=== PATIENT | female | born 1980 | race Caucasian/White ===

== ENCOUNTER 2019-06-30 15:10 | Outpatient (RCR) | payer MEDICARE, MEDICAID, SELFPAY ==
[2019-06-30 16:45] LABS: Beta HCG Quantitative 45.87 mIU/ML
== END 2019-09-28 23:59 | disposition home or self-care (01) ==
LOC: ANHLAB 15:10
PROVIDERS: PCP Family Medicine; Visit Provider Obstetrics & Gynecology
DX: O02.1 Missed abortion (principal); Z3A.00 Weeks of gestation of pregnancy not specified
CPT/HCPCS: 36415; 84702

== ENCOUNTER 2020-01-10 12:50 | Outpatient (CLI) | payer MEDICARE, MEDICAID, SELFPAY ==
--- NOTE | 2020-01-10 | ECHO_ITS ---
Patient Info Name: Karina Aguayo Age: 39 years : 1980 Gender: Female Ht: 65 in Wt: 250 lbs BSA: 2.34 m2 HR: 76 bpm BP: 128 / 98 mmHg Heart Rhythm: Sinus Rhythm Technical Quality: Good Exam Date: 01/10/2020 1:28 PM Exam Location: [facility] Patient Status: Outpatient Admit Date: 01/10/2020 Staff Ordering Physician: PHYSICIAN NOT ON STAFF, NONSTAFF Mapper: Joey Pina, CHARLEEN, RT Attending Provider: PHYSICIAN NOT ON STAFF, NONSTAFF Exam Type: CA echo doppler color flow Study Info Indications I27.2 - Other secondary pulmonary hypertension Complete two-dimensional, color flow and Doppler transthoracic echocardiogram is performed. Summary 1. Left ventricular systolic function is normal, estimated at 60-65%. 2. There is mildly increased left ventricular wall thickness. 3. The left ventricular diastolic function is normal. 4. Global longitudinal strain is normal at -19 %. 5. There is no aortic valve stenosis. 6. There is trace mitral valve regurgitation. 7. Unable to estimate PA systolic pressure due to poor spectral resolution of tricuspid regurgitant jet velocity. 8. There is trace tricuspid valve regurgitation. Left Ventricle Left ventricular chamber dimension is normal. Left ventricular systolic function is normal, estimated at 60-65%. There is mildly increased left ventricular wall thickness. The left ventricular diastolic function is normal. Global longitudinal strain is normal at -19 %. Right Ventricle Right ventricular chamber dimension is normal. Right ventricular systolic function is normal. Left Atria Left atrial chamber dimension is normal. Right Atria Right atrial chamber dimension is normal. Aortic Valve The aortic valve is not well visualized. There is no aortic valve stenosis. There is no aortic valve regurgitation. Pulmonic Valve The pulmonic valve is not well visualized. There is trace pulmonic regurgitation. Mitral Valve The mitral valve has normal leaflets. There is trace mitral valve regurgitation. Tricuspid Valve The tricuspid valve leaflets are normal. There is trace tricuspid valve regurgitation. Unable to estimate PA systolic pressure due to poor spectral resolution of tricuspid regurgitant jet velocity. Pericardium/Pleural The pericardium appears normal. There is no pericardial effusion. Inferior Vena Cava Normal inferior vena cava with >50% collapse upon inspiration consistent with normal right atrial pressure, 5 mmHg. Aorta The aortic root size at the sinus of Valsalva is normal. Left Ventricular Outflow Tract Name Value Normal LVOT 2D LVOT Diameter 1.9 cm LVOT Doppler LVOT Peak Gradient 6 mmHg LVOT Mean Gradient 3 mmHg LVOT VTI 23 cm LVOT Stroke Volume 63 ml LVOT CO 4.6 l/min LVOT CI 2.0 l/min/m2 Mitral Valve Name Value
--- NOTE | ~2020-01-10 | XR_ITS ---
XR chest 2V 01/10/2020 16:05 Indication: Dyspnea. History of sleep apnea. Procedure: PA and lateral views of the chest Comparison: 08/06/2016 Findings: Heart size normal. Right lung clear. There is lingular atelectasis/scarring. No edema, pleu ral effusion or pneumothorax. Impression: 1: Lingular atelectasis/scarring. Reviewed, dictated and finalized at location A. Impression: 1: Lingular atelectasis/scarring.
--- NOTE | 2020-01-16 09:53 | WPDPFTINT ---
PFT Interpretation PFT Interpretation: DOS: 01/10/2020 REQUESTING: Dr. Bran Fernández REASON FOR TESTING: Pulmonary hypertension PULMONARY FUNCTION TESTS Results are reproducible and reliable. Spirometry: FEV1 is 110% predicted, FVC 112% predicted, and FEV1% is 77%, all normal. VOO26-18% is 89%. There is no change after bronchodilator administration. Lung volumes: TLC increased at 122% consistent with mild hyperinflation. RV increased 131% consistent with mild air trapping. Normal airway resistance 85%. Diffusion: DLCO is moderately decreased 59%. Flow volume loop: Normal. IMPRESSION: Normal spirometry. Mild hyperinflation and air trapping are consistent with an obstructive process. The most significant finding is a moderate diffusion impairment. She is a nonsmoker. Decreased diffusion can be seen in anemia, pulmonary vascular diseases including pulmonary hypertension, early ILD and other conditions. Shelley Stephens MD
== END 2020-01-10 12:51 | disposition home or self-care (01) ==
PROVIDERS: PCP Family Medicine
DX: I27.20 Pulmonary hypertension, unspecified (principal); R06.09 Other forms of dyspnea; R91.8 Other nonspecific abnormal finding of lung field
CPT/HCPCS: 36415; 71046; 84702; 93306; 94060; 94726; 94729

== ENCOUNTER 2020-01-10 15:33 | Outpatient (RCR) | payer MEDICARE, MEDICAID, SELFPAY | END 2020-02-01 07:45 | disposition home or self-care (01) | LOC: ANHLAB 15:33 | PROVIDERS: PCP Family Medicine; Visit Provider Obstetrics & Gynecology Gynecology | DX: O26.21 Pregnancy care for patient with recurrent pregnancy loss, first trimester (principal); O26.841 Uterine size-date discrepancy, first trimester; Z3A.00 Weeks of gestation of pregnancy not specified | CPT/HCPCS: 36415; 84702 ==

== ENCOUNTER → 2020-01-19 10:55 | Outpatient (CLI) | payer MEDICARE, MEDICAID, SELFPAY ==
--- NOTE | ~2020-01-19 | US_ITS ---
EXAMINATION: US OB transvaginal DATE: 01/19/2020 11:27 INDICATION: History of spontaneous TECHNIQUE: Real-time transabdominal and transvaginal obstetric ultrasound. FINDINGS: No prior studies for comparison. The uterus measures 11.7 x 6.8 x 8 cm. There is an intrauterine gestational sac, with pole iden tified. The crown rump length measures 1.92 cm, which correlates with a estimated gestational age of 8 weeks 3 days. heart tones are identified measuring 174 BPM. The ovaries are within normal limits. No free fluid in the pelvis. IMPRESSION: 1. SL IUP with an EGA of 8 weeks, 3 days (EDC by current ultrasound of 08/27/2020). Reviewed, dictated and finalized at location B. IMPRESSION: 1. SL IUP with an EGA of 8 weeks, 3 days (EDC by current ultrasound of ).
== END ==
PROVIDERS: PCP Family Medicine; Visit Provider Obstetrics & Gynecology Gynecology
DX: O26.21 Pregnancy care for patient with recurrent pregnancy loss, first trimester (principal); Z3A.08 8 weeks gestation of pregnancy
CPT/HCPCS: 76817

== ENCOUNTER 2020-02-16 13:06 | Outpatient (CLI) | payer MEDICARE, MEDICAID, SELFPAY ==
[2020-02-16 14:44] LABS: Basophils Absolute Auto 0.1 K/mm3 (0.0-0.1); Basophils Percent Auto 0.4 % (0.2-1.2); Eosinophils Absolute Auto 0.2 K/mm3 (0-0.3); Eosinophils Percent Auto 1.6 % (0-4.4); Hematocrit 37.7 % (37.0-47.0); Hemoglobin 12.7 g/dL (12.0-15.0); Immature Granulocyte Absolute 0.08 K/mm3 (0.00-0.031); Immature Granulocyte Percent A 0.6 % (0-0.5); Lymphocytes Absolute Auto 2.86 K/mm3 (0.9-3.2); Lymphocytes Percent Auto 20.4 % (18.3-44.2); Mean Corpuscular HGB Conc 33.7 g/dl (32-36); Mean Corpuscular Hemoglobin 30.9 pg (26-34); Mean Corpuscular Volume 91.7 fl (80-100); Mean Platelet Volume 11.5 fl (7.4-10.4); Monocytes Percent Auto 7.3 % (2.6-8.5); Neutrophils Absolute Auto 9.8 K/mm3 (1.3-6.7); Neutrophils Percent Auto 69.7 % (45.5-73.1); Platelet Count Result 247 k/mm3 (150-375); Red Blood Count 4.11 M/mm3 (4.2-5.4); Red Cell Distribution Width 12.6 % (11.5-14.5)
[2020-02-16 15:05] LABS: Hemoglobin A1C 5.1 % (<5.7)
[2020-02-16 15:34] LABS: HIV 1/2 Ab P24 Ag Result Negative (Negative)
[2020-02-16 16:05] LABS: Hepatitis B Surface Antigen Negative (Negative); Rubella IgG Antibody 13.6 IU/ML
[2020-02-19 12:21] LABS: Rapid Plasma Reagin Non-Reactive (NonReactive)
== END 2020-02-16 13:07 | disposition home or self-care (01) ==
PROVIDERS: PCP Family Medicine; Visit Provider Obstetrics & Gynecology Gynecology
DX: Z36.9 Encounter for antenatal screening, unspecified (principal)
CPT/HCPCS: 36415; 82306; 83036; 85025; 85461; 86592; 86703; 86762; 87340; G0432

== ENCOUNTER 2020-04-24 09:26 | Outpatient (NON) | payer MEDICARE, MEDICAID, SELFPAY ==
[2020-04-24 23:56] LABS: SARS-CoV-2 RNA PCR Negative
== END 2020-04-24 09:27 ==
PROVIDERS: PCP Family Medicine; Visit Provider Obstetrics & Gynecology Gynecology
DX: Z20.828 Contact with and (suspected) exposure to other viral communicable diseases (principal)
CPT/HCPCS: 87635; C9803; U0003

== ENCOUNTER → 2020-08-09 08:18 | Outpatient (CLI) | payer MEDICARE, MEDICAID, SELFPAY ==
[2020-08-09 18:11] LABS: SARS-CoV-2 RNA PCR Negative
== END ==
PROVIDERS: PCP Family Medicine; Visit Provider Family Medicine
DX: R68.89 Other general symptoms and signs (principal); Z20.822 Contact with and (suspected) exposure to COVID-19
CPT/HCPCS: C9803; U0003; U0005

== ENCOUNTER → 2020-10-14 06:46 | Outpatient (CLI) | payer MEDICARE, MEDICAID, SELFPAY ==
[2020-10-14 19:42] LABS: SARS-CoV-2 RNA PCR Negative
== END ==
PROVIDERS: PCP Family Medicine; Visit Provider Family Medicine
DX: Z20.822 Contact with and (suspected) exposure to COVID-19 (principal); B34.9 Viral infection, unspecified
CPT/HCPCS: C9803; U0003; U0005

== ENCOUNTER → 2020-12-19 08:58 | Outpatient (CLI) | payer MEDICARE, MEDICAID, SELFPAY ==
--- NOTE | ~2020-12-19 | MMUS_ITS ---
EXAMINATION: MM diagnostic kendrick BI w maribeth, US breast BI limited HISTORY: Palpable lumps of the upper inner and lower inner left breast TECHNIQUE: Craniocaudal, mediolateral, and mediolateral oblique 3-D tomosynthesis images of the angelica ts were performed and synthetic 2-D images were generated. CAD analysis was submitted and interpreted . High resolution limited bilateral breast ultrasound was performed. COMPARISON: No prior mammogram is currently available for comparison BREAST PARENCHYMAL COMPOSITION: The breasts are almost entirely fatty. FINDINGS: MAMMOGRAPHIC FINDINGS: Right breast: There is a 10 mm oval, circumscribed, low-density mass middle third of the upper outer quadrant breast at the 11:00 location 9 cm from the nipple. Left breast: An asymmetry is present in the middle third of the outer breast 5 cm from the nipple on the craniocaudal view. No mammographic correlate is identified for the reported palpable abnormalitie s of the left breast. ULTRASOUND: Right breast: There is a 6 mm oval, circumscribed, parallel, hypoechoic mass with no posterior featur es or internal vascularity at the 11:00 location 10 cm from the nipple. A 3 mm mass with similar sono graphic features is seen at the 11:00 location near the nipple. Left breast: There is a 1.3 x 0.5 cm oval, circumscribed, parallel, hyperechoic mass at the 2:00 loca tion 4 cm from the nipple with no posterior features and apparent internal vascularity. No sonographi c correlate for the for the reported palpable abnormalities of the left breast IMPRESSION: 1. No specific mammographic or sonographic correlate is identified for the reported palpable abnormal ities of the left breast. Further evaluation at this time should be based on clinical assessment. Con tinued follow-up physical examination is recommended. Additional bilateral breast masses as described above unrelated to the palpable findings. 2. Recommend 6 month follow-up bilateral diagnostic mammogram and ultrasound. BI-RADS category 3, probably benign findings. Reviewed, dictated and finalized at location A. IMPRESSION: 1. No specific mammographic or sonographic correlate is identified for the repo rted palpable abnormalities of the left breast. Further evaluation at this time should be based on clinical assessment. Continued follow-up physical examinati on is recommended. Additional bilateral breast masses as described above unrela ray to the palpable findings. 2. Recommend 6 month follow-up bilateral diagnostic mammogram and ultrasound. BI-RADS category 3, probably benign findings.
== END ==
PROVIDERS: PCP Family Medicine; Visit Provider Obstetrics & Gynecology Gynecology
DX: R92.8 Other abnormal and inconclusive findings on diagnostic imaging of breast (principal); N63.21 Unspecified lump in the left breast, upper outer quadrant
CPT/HCPCS: 76642; 77062; 77066; G0279

== ENCOUNTER 2021-01-02 13:46 | Outpatient (CLI) | payer MEDICARE, MEDICAID, SELFPAY ==
[2021-01-02 14:48] LABS: Beta HCG Quantitative < 2.39 mIU/ML
== END 2021-01-02 13:47 | disposition home or self-care (01) ==
LOC: ANHLAB 13:49
PROVIDERS: PCP Family Medicine; Visit Provider Obstetrics & Gynecology Gynecology
DX: N91.2 Amenorrhea, unspecified (principal)
CPT/HCPCS: 36415; 84702

== ENCOUNTER 2021-08-19 15:57 | Outpatient (CLI) | payer MEDICARE, MEDICAID, SELFPAY ==
[2021-08-19 20:36] LABS: HIV 1/2 Ab P24 Ag Result Negative (Negative)
[2021-08-20 05:56] LABS: Rapid Plasma Reagin Non-Reactive (NonReactive)
== END 2021-08-19 15:58 | disposition home or self-care (01) ==
LOC: ANHLAB 16:11
PROVIDERS: PCP Family Medicine; Visit Provider Obstetrics & Gynecology Gynecology
DX: Z11.3 Encounter for screening for infections with a predominantly sexual mode of transmission (principal)
CPT/HCPCS: 36415; 86592; 86703; G0432

== ENCOUNTER → 2022-04-20 10:55 | Outpatient (CLI) | payer MEDICARE, MEDICAID, SELFPAY ==
--- NOTE | ~2022-04-20 | US_ITS ---
EXAMINATION: US OB transvaginal DATE: 04/20/2022 12:25 INDICATION: History of spontaneous , first trimester TECHNIQUE: Real-time pelvic transabdominal and transvaginal ultrasound was performed. COMPARISON: 01/18/2021 FINDINGS: The uterus measures 11.0 x 6.0 x 6.8 cm. There is an intrauterine fluid collection measuri ng 16 mm x 7 mm x 16 mm. No pole is seen. Estimated gestational age based on mean sac diameter is 5 weeks and 4 day(s) (+/-) 4 day(s). The left ovary is not visualized however no left adnexal abnormality is seen. The right ovary measure s 3.5 x 2.3 x 3.1 cm. There is no free fluid in the pelvis. IMPRESSION: 1. Intrauterine fluid collection, which could reflect gestational sac, with an estimated gestational age of of 5 weeks and 4 day(s) (+/-) 4 day(s) and an estimated delivery date of 12/17/2022 based on me an sac diameter. Reviewed, dictated and finalized at location A. IMPRESSION: 1. Intrauterine fluid collection, which could reflect gestational sac, with an estimated gestational age of of 5 weeks and 4 day(s) (+/-) 4 day(s) and an kaushal mated delivery date of 12/17/2022 based on mean sac diameter.
== END ==
PROVIDERS: PCP Family Medicine; Visit Provider Obstetrics & Gynecology Gynecology
DX: Z36.89 Encounter for other specified antenatal screening (principal); N96 Recurrent pregnancy loss
CPT/HCPCS: 76817

== ENCOUNTER 2022-04-22 09:52 | Outpatient (RCR) | payer MEDICARE, MEDICAID, SELFPAY ==
[2022-04-01 17:33] LABS: Beta HCG Quantitative 227.45 mIU/ML
== END 2022-06-30 23:59 | disposition home or self-care (01) ==
LOC: ANHLAB 09:52
PROVIDERS: PCP Family Medicine; Visit Provider Obstetrics & Gynecology Gynecology
DX: O26.21 Pregnancy care for patient with recurrent pregnancy loss, first trimester (principal); O09.521 Supervision of elderly multigravida, first trimester; Z3A.00 Weeks of gestation of pregnancy not specified
CPT/HCPCS: 36415; 84702

== ENCOUNTER → 2022-05-04 12:13 | Outpatient (CLI) | payer MEDICARE, MEDICAID, SELFPAY ==
--- NOTE | ~2022-05-04 | US_ITS ---
EXAMINATION: US OB transvaginal DATE: 05/04/2022 12:39 INDICATION: Viability. TECHNIQUE: Real-time transvaginal pelvic ultrasound was performed. COMPARISON: Ultrasound 04/20/2022 FINDINGS: The uterus measures 9.4 x 5.5 x 6.8 cm. There is a cyst in the endometrial complex with mean diameter of 1.7 cm. If this finding is a gestational sac, it correlates with an estimated gestational age of 6 weeks and 0 days +/- 4 days. No visible pole or yolk sac. The right ovary measures 3.6 x 2.8 x 2.8 cm. The left ovary measures 2.6 x 1.3 x 1.4 cm. There is no free fluid in the pelvis. IMPRESSION: 1. Cyst in the endometrial complex that may be a gestational sac with estimated date of delivery of 12/28/2022. The lack of a visible yolk sac would be concerning. Spontaneous and ectopic pregn norma are not excluded. Serial beta hCGs are recommended. Reviewed, dictated and finalized at location A. IMPRESSION: 1. Cyst in the endometrial complex that may be a gestational sac with estimate d date of delivery of 12/28/2022. The lack of a visible yolk sac would be concer miguelito. Spontaneous and ectopic are not excluded. Serial beta hCGs are recommended.
== END ==
PROVIDERS: PCP Family Medicine; Visit Provider Obstetrics & Gynecology Gynecology
DX: O36.80X0 Pregnancy with inconclusive fetal viability, not applicable or unspecified (principal)
CPT/HCPCS: 76817

== ENCOUNTER 2022-05-07 10:42 | Outpatient (RCR) | payer MEDICARE, MEDICAID, SELFPAY | END 2022-08-05 23:59 | disposition home or self-care (01) | LOC: ANHLAB 10:42 | PROVIDERS: PCP Family Medicine; Visit Provider Obstetrics & Gynecology Gynecology | DX: O36.80X0 Pregnancy with inconclusive fetal viability, not applicable or unspecified (principal); Z3A.00 Weeks of gestation of pregnancy not specified | CPT/HCPCS: 36415; 84702 ==

== ENCOUNTER 2022-05-27 10:36 | Outpatient (RCR) | payer MEDICARE, MEDICAID, SELFPAY ==
[2022-05-18 11:02] LABS: Beta HCG Quantitative 18.76 mIU/ML
[2022-05-27 11:41] LABS: Beta HCG Quantitative < 2.39 mIU/ML
== END 2022-08-16 23:59 | disposition home or self-care (01) ==
LOC: ANHLAB 10:36
PROVIDERS: PCP Family Medicine; Visit Provider Obstetrics & Gynecology Gynecology
DX: O03.9 Complete or unspecified spontaneous abortion without complication (principal)
CPT/HCPCS: 36415; 84702

== ENCOUNTER 2022-06-18 13:55 | Outpatient (CLI) | payer MEDICARE, MEDICAID, SELFPAY ==
[2022-06-18 14:45] LABS: SARS-CoV-2 RNA PCR Negative
== END 2022-06-18 13:56 | disposition home or self-care (01) ==
LOC: ANHLAB 13:58
PROVIDERS: PCP Family Medicine; Visit Provider Nurse Practitioner Family
DX: J06.9 Acute upper respiratory infection, unspecified (principal); Z20.822 Contact with and (suspected) exposure to COVID-19
CPT/HCPCS: U0003; U0005